=== PATIENT | male | born 1940 | race Asian ===

== ENCOUNTER 2018-02-06 08:58 | Emergency (ER) | payer OTHER, BC ==
[~2018-02-06] VITALS: Ht 160 cm; Wt 72.6 kg
[2018-02-06 09:15] VITALS: Ht 160 cm; Wt 72.6 kg
[2018-02-06 11:34] VITALS: BP 140/76
== END 2018-02-06 11:34 | disposition home or self-care (01) ==
LOC: ED 08:58
DX: M54.41 Lumbago with sciatica, right side (principal); I25.2 Old myocardial infarction; I10 Essential (primary) hypertension; E11.9 Type 2 diabetes mellitus without complications; Z88.0 Allergy status to penicillin
CPT/HCPCS: J2270; Q0162

== ENCOUNTER 2018-04-19 09:44 | Emergency (ER) | payer OTHER, BC ==
[~2018-04-19] VITALS: Ht 160 cm; Wt 72.2 kg
[2018-04-19 10:05] VITALS: Ht 160 cm; Wt 72.2 kg
[2018-04-19 12:14] LABS: BASOPHIL % 0.5 % (0-2); PLATELET COUNT 272 x10^3mcL (130-400); RED CELL DISTRIBUTION WIDTH 13.5 % (11.5-14.5)
[2018-04-19] MEDS ORDERED: ZOCOR20 MG PO (12:39)
[2018-04-19] MEDS ORDERED: ASPIR 8181 MG PO (12:40)
[2018-04-19] MEDS ORDERED: ISOSORBIDE MONO30 MG PO (12:40)
[2018-04-19] MEDS ORDERED: BENAZEPRIL HYDR20 M1 PO (12:40)
[2018-04-19] MEDS ORDERED: METFORMIN500 M1 PO (12:41)
[2018-04-19] MEDS ORDERED: TAMSULOSIN HCL0.4 MG PO (12:41)
[2018-04-19] MEDS ORDERED: VITAMIN C PUR1000 M1 PO (12:41)
[2018-04-19] MEDS ORDERED: CLARITIN10 MG GT (12:42)
[2018-04-19] MEDS ORDERED: CARVEDILOL3.125 M1 PO (12:42)
[2018-04-19] MEDS ORDERED: CITALOPRAM HYDR10 M1 PO (12:42)
[2018-04-19 12:51] LABS: CALCIUM 9.2 mg/dL (8.5-10.1); CARBON DIOXIDE 28.9 mmol/L (21-32); CHLORIDE SERUM 104 mmol/L (98-107); GLUCOSE SERUM 99 mg/dL (74-106); SODIUM SERUM 137 mmol/L (136-145)
[2018-04-19 13:50] VITALS: BP 136/92
== END 2018-04-19 13:50 | disposition home or self-care (01) ==
LOC: ED 09:44 → EDBEDREQSVC 12:51 → ED 13:50
PROVIDERS: Emergency Medicine
DX: I10 Essential (primary) hypertension (principal); R51 Headache; E11.9 Type 2 diabetes mellitus without complications; Z88.0 Allergy status to penicillin
CPT/HCPCS: J3010

== ENCOUNTER 2018-08-27 11:08 | Emergency (ER) | payer OTHER, BC ==
[~2018-08-27] VITALS: Ht 162.6 cm; Wt 78.0 kg
[~2018-08-27 11:08] MED LIST: ASPIR 8181 MG PO; BENAZEPRIL HYDR20 M1 PO; CARVEDILOL3.125 M1 PO; CITALOPRAM HYDR10 M1 PO; CLARITIN10 MG GT; ISOSORBIDE MONO30 MG PO; METFORMIN500 M1 PO; TAMSULOSIN HCL0.4 MG PO; VITAMIN C PUR1000 M1 PO; ZOCOR20 MG PO
[2018-08-27 11:13] VITALS: Ht 162.6 cm; Wt 78.0 kg
[2018-08-27 12:20] VITALS: BP 131/88
== END 2018-08-27 12:20 | disposition home or self-care (01) ==
LOC: ED 11:08
DX: T78.40XA Allergy, unspecified, initial encounter (principal); X58.XXXA Exposure to other specified factors, initial encounter
CPT/HCPCS: J7512; Q0163